=== PATIENT | male | born 1970 | race Two or more races ===

== ENCOUNTER 2023-11-10 12:45 | Inpatient (IN) | payer OTHER ==
[~2023-11-10] VITALS: Ht 170.2 cm; Wt 81.6 kg
[2023-11-10] MEDS ORDERED: COZAAR25 MG PO (14:04)
[2023-11-17] MEDS ORDERED: ENOXAPARIN SODIUM 40 MG/0.4 ML SYRINGE SUBCUTANEO ONE (07:36)
[2023-11-17] MEDS ORDERED: LIDOCAINE HCL 1% 20ML VIAL IJ ONE (08:19)
[2023-11-17] MEDS ORDERED: CEFAZOLIN SODIUM 1,000 MG VIAL IV ONE (09:45)
[2023-11-17] MEDS ORDERED: SURGIFLO APPLICATOR 1 EACH APPL TOP ONE (10:03)
[2023-11-17] MEDS ORDERED: HEMOSTATIC MATRIX 1 KIT KIT TOP ONE (10:03)
[2023-11-17] MEDS ORDERED: SUGAMMADEX SODIUM 200 MG/2 ML VIAL IV ONE (12:03)
[2023-11-17] MEDS ORDERED: RINGERS SOLUTION,LACTATED 1,000 ML IV SCH (12:15)
[2023-11-17] MEDS ORDERED: OxyCODONE HCL/APAP UD (PERCOCET) PO PRN (12:15)
[2023-11-17] MEDS ORDERED: ONDANSETRON HCL 2 MG/ML VIAL IV PRN (12:15)
[2023-11-17] MEDS ORDERED: ENALAPRILAT DIHYDRATE 1.25 MG/ML VIAL IV PRN (14:45)
[2023-11-17] MEDS ORDERED: POLYETHYLENE GLYCOL 3350 17 GM BLIST.PACK PO SCH (17:00)
[2023-11-17] MEDS ORDERED: GABAPENTIN 300 MG CAPSULE PO SCH (17:00)
[2023-11-17] MEDS ORDERED: KETOROLAC TROMETHAMINE 30 MG VIAL IV SCH (17:00)
[2023-11-17] MEDS ORDERED: CEFAZOLIN SODIUM 1,000 MG VIAL ONE (17:25)
[2023-11-17] MEDS ORDERED: KETOROLAC TROMETHAMINE 30 MG VIAL ONE (17:25)
[2023-11-17] MEDS ORDERED: CEFAZOLIN SODIUM 1,000 MG VIAL IV SCH (18:00)
[2023-11-17] MEDS ORDERED: FAMOTIDINE/PF 20 MG/2 ML VIAL ONE (20:40)
[2023-11-17] MEDS ORDERED: FAMOTIDINE/PF 20 MG/2 ML VIAL IV SCH (21:00)
[2023-11-18 07:19] LABS: HEMATOCRIT 38.2 % (39.0-48.0); HEMOGLOBIN 12.2 g/dL (13-16.00); MEAN CELL VOLUME 71.3 fL (80.0-100.00); MEAN CORPUSCULAR HEMOGLOBIN 22.7 pg (27.00-32.0); MEAN CORPUSCULAR HGB CONC 31.9 g/dl (32.0-36.0); PLATELET COUNT 259 K/uL (150-450); RED BLOOD COUNT 5.36 M/uL (4.00-6.00); RED CELL DISTRIBUTION WIDTH 16.3 % (11.5-14.5)
[2023-11-18 07:34] LABS: ALBUMIN 3.2 gm/dL (3.4-5.0); CALCIUM 8.8 mg/dL (8.5-10.1); CREATININE SERUM 0.98 mg/dL (0.70-1.30); GFR 80.01; PHOSPHOROUS 3.6 mg/dL (2.5-4.9); POTASSIUM 4.38 mEq/L (3.5-5.1)
[2023-11-18] MEDS ORDERED: LOSARTAN POTASSIUM 25 MG TABLET PO SCH (09:00)
[2023-11-18] MEDS ORDERED: ENOXAPARIN SODIUM 40 MG/0.4 ML SYRINGE SUBCUTANEO SCH (09:00)
== END 2023-11-18 16:38 | disposition home or self-care (01) | DRG 708 ==
LOC: O/R 11-17 05:30 → SURG 11-17 07:00
PROVIDERS: ADMIT Urology; ATTEND Urology
PROC: 07BC4ZZ Excision of Pelvis Lymphatic, Percutaneous Endoscopic Approach (ICD-10-PCS; 2023-11-17)
PROC: 8E0W4CZ Robotic Assisted Procedure of Trunk Region, Percutaneous Endoscopic Approach (ICD-10-PCS; 2023-11-17)
PROC: 0VT04ZZ Resection of Prostate, Percutaneous Endoscopic Approach (ICD-10-PCS; principal; 2023-11-17 07:00)
DX: C61 Malignant neoplasm of prostate (principal); Z20.822 Contact with and (suspected) exposure to COVID-19
CPT/HCPCS: 55866; 38571; S2900